=== PATIENT | female | born 1970 | race Caucasian/White ===

== ENCOUNTER 2017-09-12 10:07 | Emergency (ER) | payer OTHER ==
[~2017-09-12] VITALS: Ht 160 cm; Wt 65.8 kg
[2017-09-12] MEDS ORDERED: KETOROLAC TROMETHAMINE 15 MG INJ IM ONE (10:45)
[2017-09-12] MEDS ORDERED: ONDANSETRON 4 MG/2 ML VIAL IM ONE (10:45)
[2017-09-12] MEDS ORDERED: ONDANSETRON 4 MG/2 ML VIAL ONE (11:07)
[2017-09-12] MEDS ORDERED: KETOROLAC TROMETHAMINE 15 MG INJ ONE (11:07)
[2017-09-12 11:20] LABS: BASOPHILS % (AUTO) 0.7 % (0.0-2.0); EOSINOPHILS # (AUTO) 0.1 K/uL (0.0-0.7); EOSINOPHILS % (AUTO) 1.6 % (0.0-7.0); HEMATOCRIT 34.9 % (31.2-41.9); HEMOGLOBIN 11.8 g/dL (10.9-14.3); LYMPHOCYTES # (AUTO) 1.8 K/uL (20.0-40.0); MEAN CORPUSCULAR HEMOGLOBIN 33.4 uug (24.7-32.8); MEAN CORPUSCULAR HGB CONC 34 g/dL (32.3-35.6); MEAN CORPUSCULAR VOLUME 99.2 fL (75.5-95.3); MONOCYTES # (AUTO) 0.4 K/uL (2.0-10.0); MONOCYTES % (AUTO) 6.7 % (0.0-11.0); NEUTROPHILS # (AUTO) 3.5 K/uL (1.8-8.9); PLATELET COUNT (AUTO) 234 K/uL (179-408); RED BLOOD CELL COUNT(AUTO) 3.52 MIL/uL (3.63-4.92); WHITE BLOOD COUNT (AUTO) 5.9 K/uL (3.8-11.8)
[2017-09-12 11:24] LABS: *BILIRUBIN,URIN NEGATIVE (NEGATIVE); *BLOOD, URINE NEGATIVE (NEGATIVE); *CLARITY,URINE CLEAR (CLEAR); *COLOR,URINE YELLOW (YELLOW); *KETONES,URINE NEGATIVE (NEGATIVE); *PROTEIN,URINE NEGATIVE (NEGATIVE); *UROBILINOGEN,URINE 0.2 E.U./dl (NORMAL); LEUKOCYTE ESTERASE ,URINE NEGATIVE (NEGATIVE); NITRITE, URINE NEGATIVE (NEGATIVE); UGLUCOSE NEGATIVE (NEGATIVE)
[2017-09-12 11:28] LABS: *URINE HCG, QUAL NEGATIVE (NEGATIVE)
[2017-09-12 11:31] LABS: CREATININE 0.7 mg/dL (0.6-1.3); POTASSIUM 3.9 mmol/L (3.5-5.1)
[2017-09-12 11:32] LABS: BACTERIA,URINE NONE SEEN /HPF (NONE SEEN); MUCUS,URINE FEW /LPF (0-FEW); RBC,URINE 0-3 /HPF (0-3); SQUAMOUS EPITHELIAL CELL,UR FEW /HPF (NONE SEEN); WBC,URINE 0-3 /HPF (0-3)
--- NOTE | 2017-09-12 11:47 | NUR ---
Patient discharged to home in stable conditon. Written and verbal after care instructions given. Patient verbalizes understanding of instructions.pt walks in steady gait. pt accompanied by , abhayn down to tolerble rashi.
== END 2017-09-12 11:50 | disposition home or self-care (01) ==
LOC: ER 10:07
DX: M54.5 Low back pain (principal); R11.0 Nausea; F17.200 Nicotine dependence, unspecified, uncomplicated; G43.909 Migraine, unspecified, not intractable, without status migrainosus
CPT/HCPCS: 36415; 84703; 85025; A4663; J1885; J2405

== ENCOUNTER 2017-10-18 08:12 | Emergency (ER) | payer OTHER ==
[~2017-10-18] VITALS: Ht 160 cm; Wt 65.8 kg
[2017-10-18 08:49] VITALS: BP 107/72
--- NOTE | 2017-10-18 08:49 | NUR ---
Patient discharged to home in stable conditon. Written and verbal after care instructions given. Patient verbalizes understanding of instructions.
== END 2017-10-18 08:50 | disposition home or self-care (01) ==
LOC: ER 08:12
DX: J40 Bronchitis, not specified as acute or chronic (principal); G40.909 Epilepsy, unspecified, not intractable, without status epilepticus; F17.200 Nicotine dependence, unspecified, uncomplicated
CPT/HCPCS: A4663

== ENCOUNTER 2017-11-06 10:49 | Emergency (ER) | payer OTHER ==
[~2017-11-06] VITALS: Ht 160 cm; Wt 65.8 kg
[2017-11-06] MEDS ORDERED: METOCLOPRAMIDE HCL 10 MG/2 ML VIAL ONE (11:51)
[2017-11-06] MEDS ORDERED: METOCLOPRAMIDE HCL 10 MG/2 ML VIAL IM ONE (12:00)
[2017-11-06] MEDS ORDERED: MORPHINE SULFATE 4 MG/1 ML DISP.SYRIN ONE (13:08)
[2017-11-06] MEDS ORDERED: MORPHINE SULFATE 4 MG/1 ML DISP.SYRIN IM ONE (13:15)
--- NOTE | 2017-11-06 13:15 | NUR ---
PT WAS D/C TO HOME. D/C INSTRUCTIONS GIVEN TO THE PT.
[2017-11-06 13:16] VITALS: BP 136/78
== END 2017-11-06 13:17 | disposition home or self-care (01) ==
LOC: ER 10:49
DX: J45.909 Unspecified asthma, uncomplicated (principal); F17.210 Nicotine dependence, cigarettes, uncomplicated
CPT/HCPCS: 71045; 96372 ×2; 99284; A4663; J2270; J2765

== ENCOUNTER 2017-12-13 18:36 | Emergency (ER) | payer OTHER ==
[~2017-12-13] VITALS: Ht 157.5 cm; Wt 69.9 kg
[2017-12-13] MEDS ORDERED: ASPI1TAB2 PO (19:17)
[2017-12-13] MEDS ORDERED: ONDANSETRON 4 MG/2 ML VIAL IV ONE (20:15)
[2017-12-13] MEDS ORDERED: IV NORMAL SALINE 1000 ML BAG IV ONE (20:15)
[2017-12-13] MEDS ORDERED: KETOROLAC TROMETHAMINE 15 MG INJ IV ONE (20:15)
[2017-12-13 20:30] LABS: BASOPHILS % (AUTO) 1.2 % (0.0-2.0); EOSINOPHILS # (AUTO) 0.1 K/uL (0.0-0.7); EOSINOPHILS % (AUTO) 1.9 % (0.0-7.0); HEMATOCRIT 35.9 % (31.2-41.9); HEMOGLOBIN 12.1 g/dL (10.9-14.3); LYMPHOCYTES # (AUTO) 2.4 K/uL (20.0-40.0); LYMPHOCYTES % (AUTO) 59.3 % (20.5-51.5); MEAN CORPUSCULAR HEMOGLOBIN 33.1 uug (24.7-32.8); MEAN CORPUSCULAR HGB CONC 34 g/dL (32.3-35.6); MEAN CORPUSCULAR VOLUME 98.2 fL (75.5-95.3); MONOCYTES # (AUTO) 0.3 K/uL (2.0-10.0); MONOCYTES % (AUTO) 7.7 % (0.0-11.0); NEUTROPHILS # (AUTO) 1.2 K/uL (1.8-8.9); NEUTROPHILS % (AUTO) 29.9 % (38.5-71.5); PLATELET COUNT (AUTO) 213 K/uL (179-408); RED BLOOD CELL COUNT(AUTO) 3.65 MIL/uL (3.63-4.92)
[2017-12-13] MEDS ORDERED: KETOROLAC TROMETHAMINE 30 MG INJ ONE (20:36)
[2017-12-13] MEDS ORDERED: ONDANSETRON 4 MG/2 ML VIAL ONE (20:36)
[2017-12-13 20:48] LABS: CREATININE 0.7 mg/dL (0.6-1.3); POTASSIUM 4.3 mmol/L (3.5-5.1)
[2017-12-13 20:56] LABS: BILIRUBIN,DIRECT 0.1 mg/dL (0.0-0.2); BILIRUBIN,TOTAL 0.2 mg/dL (0.2-1.0); TOTAL PROTEIN, SERUM 7.1 g/dL (6.4-8.2)
--- NOTE | 2017-12-13 21:05 | NUR ---
PT IN BED. PT'S SPOUSE AT BEDSIDE. IV FLUIDS RUNNING. NO SIGNS OF DISTRESS WITNESSED BY NURSE OR EXPRESSED BY PT AT THIS TIME.
--- NOTE | 2017-12-13 21:23 | NUR ---
PT IN ROUTE TO CT.
[2017-12-13] MEDS ORDERED: METOCLOPRAMIDE HCL 10 MG/2 ML VIAL ONE (21:28)
[2017-12-13] MEDS ORDERED: diphenhydrAMINE 50 MG/1 ML VIAL ONE (21:28)
[2017-12-13] MEDS ORDERED: METOCLOPRAMIDE HCL 10 MG/2 ML VIAL IV ONE (21:30)
[2017-12-13] MEDS ORDERED: diphenhydrAMINE 50 MG/1 ML VIAL IV ONE (21:30)
[2017-12-13 22:16] LABS: *BILIRUBIN,URIN NEGATIVE (NEGATIVE); *BLOOD, URINE NEGATIVE (NEGATIVE); *CLARITY,URINE CLEAR (CLEAR); *COLOR,URINE YELLOW (YELLOW); *KETONES,URINE NEGATIVE (NEGATIVE); *PROTEIN,URINE NEGATIVE (NEGATIVE); *UROBILINOGEN,URINE 0.2 E.U./dl (NORMAL); LEUKOCYTE ESTERASE ,URINE NEGATIVE (NEGATIVE); NITRITE, URINE NEGATIVE (NEGATIVE); UGLUCOSE NEGATIVE (NEGATIVE)
[2017-12-13 22:34] LABS: BACTERIA,URINE NONE SEEN /HPF (NONE SEEN); RBC,URINE 0-3 /HPF (0-3); SQUAMOUS EPITHELIAL CELL,UR MODERATE /HPF (NONE SEEN); WBC,URINE 0-3 /HPF (0-3)
[2017-12-13 22:35] LABS: MUCUS,URINE FEW /LPF (0-FEW)
[2017-12-13 23:01] LABS: BASOPHILS % (MANUAL) 1 % (0-2); EOSINOPHILS % (MANUAL) 1 % (0-8); LYMPHOCYTES % (MANUAL) 60 % (20-40); METAMYELOCYTES % 1 % (0-1); MYELOCYTES % 1 % (0-0); NEUTROPHILS % (MANUAL) 33 % (42-75)
--- NOTE | 2017-12-13 23:15 | NUR ---
Patient discharged to home in stable conditon. Written and verbal after care instructions given. Patient verbalizes understanding of instructions. Patient reported reduced abdominal pain and nausea prior to discharge. PO challenge passed successfully. Patient left in wheelchair pushed by spouse. Peripheral IV was removed from RT AC.
[2017-12-13 23:24] VITALS: BP 91/64
== END 2017-12-13 23:15 | disposition home or self-care (01) ==
LOC: ER 18:40
DX: K52.9 Noninfective gastroenteritis and colitis, unspecified (principal); F17.210 Nicotine dependence, cigarettes, uncomplicated; Z79.82 Long term (current) use of aspirin; Z79.899 Other long term (current) drug therapy
CPT/HCPCS: 36415; 84703; 85025; A4663; J1200; J1885; J2405; J2765; J7030

== ENCOUNTER 2017-12-20 09:52 | Emergency (ER) | payer OTHER ==
[~2017-12-20] VITALS: Ht 157.5 cm; Wt 74.4 kg
[~2017-12-20 09:52] MED LIST: ASPI1TAB2 PO
[2017-12-20] MEDS ORDERED: MORPHINE SULFATE 4 MG/1 ML DISP.SYRIN ONE ×2 (10:09→11:27)
[2017-12-20] MEDS ORDERED: ONDANSETRON 4 MG/2 ML VIAL ONE (10:09)
[2017-12-20] MEDS ORDERED: IV NORMAL SALINE 1000 ML BAG IV ONE (10:15)
[2017-12-20] MEDS ORDERED: MORPHINE SULFATE 2 MG/1 ML DISP.SYRIN IV ONE ×2 (10:15→11:30)
[2017-12-20] MEDS ORDERED: METOCLOPRAMIDE HCL 10 MG/2 ML VIAL ONE (10:18)
[2017-12-20 10:23] LABS: BASOPHILS % (AUTO) 0.9 % (0.0-2.0); EOSINOPHILS # (AUTO) 0.1 K/uL (0.0-0.7); EOSINOPHILS % (AUTO) 2.5 % (0.0-7.0); HEMOGLOBIN 12.2 g/dL (10.9-14.3); LYMPHOCYTES # (AUTO) 1.9 K/uL (20.0-40.0); LYMPHOCYTES % (AUTO) 44.1 % (20.5-51.5); MEAN CORPUSCULAR HEMOGLOBIN 33.1 uug (24.7-32.8); MEAN CORPUSCULAR HGB CONC 34 g/dL (32.3-35.6); MONOCYTES # (AUTO) 0.3 K/uL (2.0-10.0); MONOCYTES % (AUTO) 6.3 % (0.0-11.0); NEUTROPHILS % (AUTO) 46.2 % (38.5-71.5); PLATELET COUNT (AUTO) 223 K/uL (179-408); RED BLOOD CELL COUNT(AUTO) 3.67 MIL/uL (3.63-4.92); WHITE BLOOD COUNT (AUTO) 4.4 K/uL (3.8-11.8)
[2017-12-20] MEDS: ONDANSETRON 4 MG/2 ML VIAL IV ONE ×2 (10:25→10:41)
[2017-12-20 10:26] LABS: CREATININE 0.9 mg/dL (0.6-1.3); POTASSIUM 4.2 mmol/L (3.5-5.1)
[2017-12-20] MEDS ORDERED: METOCLOPRAMIDE HCL 10 MG/2 ML VIAL IV ONE (10:30)
[2017-12-20 10:32] LABS: BILIRUBIN,DIRECT 0.1 mg/dL (0.0-0.2); BILIRUBIN,TOTAL 0.2 mg/dL (0.2-1.0); TOTAL PROTEIN, SERUM 7.3 g/dL (6.4-8.2)
[2017-12-20] MEDS ORDERED: PANTOPRAZOLE SODIUM 40 MG VIAL ONE (10:54)
[2017-12-20] MEDS ORDERED: PANTOPRAZOLE SODIUM 40 MG VIAL IV ONE (11:00)
--- NOTE | 2017-12-20 11:54 | NUR ---
Patient discharged to home in stable conditon. Written and verbal after care instructions given. Patient verbalizes understanding of instructions.pt walks in steady gait. called to callie canas moss picker the pt
[2017-12-20 11:55] VITALS: BP 111/41
== END 2017-12-20 12:00 | disposition home or self-care (01) ==
LOC: ER 09:52
DX: G43.909 Migraine, unspecified, not intractable, without status migrainosus (principal); R10.13 Epigastric pain; F17.210 Nicotine dependence, cigarettes, uncomplicated; Z79.82 Long term (current) use of aspirin
CPT/HCPCS: 36415; 70450; 83690; 85025; A4663; C9113; J2270; J2405; J2765; J7030

== ENCOUNTER 2017-12-28 09:29 | Emergency (ER) | payer OTHER ==
[~2017-12-28] VITALS: Ht 154.9 cm; Wt 63.5 kg
--- NOTE | 2017-12-28 09:53 | NUR ---
PT WALKED INTO ER WITH WHO IS VERY INVOLVED IN PT CARE, CO HEADACHE AND N/V. PER PT THERE IS NOTHING LEFT IN THE STOMACH AND PT HAS A FORCEFUL BUT DRY N/V. PT HAS FOLLOW UP APPT WITH NEUROLOGIST AND SHE IS HERE FOR PAIN, NAUSEA AND DEHYDRATION MANAGEMENT.
[2017-12-28] MEDS ORDERED: HYDROMORPHONE 2 MG/1 ML DISP.SYRIN ONE ×3 (10:10→12:28)
[2017-12-28] MEDS ORDERED: ONDANSETRON 4 MG/2 ML VIAL ONE ×3 (10:10→12:28)
[2017-12-28] MEDS ORDERED: IV NORMAL SALINE 1000 ML BAG IV ONE ×2 (10:15→10:45)
[2017-12-28] MEDS ORDERED: SILVER SULFADIAZINE 1% CREAM 25 GM TUBE TP ONE ×2 (10:15)
[2017-12-28] MEDS ORDERED: ONDANSETRON IV *ER 4 MG/2 ML VIAL IV ONE ×2 (10:15→12:30)
[2017-12-28] MEDS ORDERED: HYDROMORPHONE 1 MG/1 ML DISP.SYRIN IV ONE ×3 (10:15→12:30)
[2017-12-28] MEDS ORDERED: ONDANSETRON 4 MG/2 ML VIAL IV ONE (10:45)
[2017-12-28] MEDS ORDERED: METOCLOPRAMIDE HCL 10 MG/2 ML VIAL ONE (11:29)
[2017-12-28] MEDS ORDERED: METOCLOPRAMIDE HCL 10 MG/2 ML VIAL IV ONE (11:30)
--- NOTE | 2017-12-28 11:34 | NUR ---
FORCEFUL VOMITTING WITH NO OUT PUT STILL PRESENT. MD AWARE, MEDICATED
--- NOTE | 2017-12-28 12:42 | NUR ---
Patient discharged to home in stable conditon. Written and verbal after care instructions given. Patient verbalizes understanding of instructions.PT WALKS IN STEADY GAIT.REQUESTED PX FOR FIORECET AND XANAX. PROVIDED. PT NOT DRIVING PT WITH .
[2017-12-28 12:43] VITALS: BP 127/67
--- NOTE | 2017-12-28 13:10 | NUR ---
PT LEFT ER ACCOMPANIED BY ,. PT AND PT WAS TOLD NOT TO TAKE ANY PAIN PILL OR XANAX AT HOME.
== END 2017-12-28 13:14 | disposition home or self-care (01) ==
LOC: ER 09:29
DX: G43.909 Migraine, unspecified, not intractable, without status migrainosus (principal); F17.210 Nicotine dependence, cigarettes, uncomplicated; Z79.82 Long term (current) use of aspirin
CPT/HCPCS: A4663; J1170; J2405; J2765; J7030

== ENCOUNTER 2018-07-27 03:01 | Emergency (ER) | payer OTHER ==
[~2018-07-27] VITALS: Ht 157.5 cm; Wt 59.4 kg
--- NOTE | 2018-07-27 03:36 | NUR ---
Patient discharged to home in stable conditon. Written and verbal after care instructions given. Patient verbalizes understanding of instructions.
[2018-07-27 03:37] VITALS: BP 106/81
== END 2018-07-27 03:37 | disposition home or self-care (01) ==
LOC: ER 03:05
DX: S60.032A Contusion of left middle finger without damage to nail, initial encounter (principal); S67.193A Crushing injury of left middle finger, initial encounter; F17.200 Nicotine dependence, unspecified, uncomplicated; Z79.82 Long term (current) use of aspirin; W23.0XXA Caught, crushed, jammed, or pinched between moving objects, initial encounter; Y93.89 Activity, other specified; Y92.89 Other specified places as the place of occurrence of the external cause; Y99.8 Other external cause status
CPT/HCPCS: 73140; A4663

== ENCOUNTER → 2019-04-15 | Emergency (ER) | payer OTHER ==
[~2019-04-15] VITALS: Ht 157.5 cm; Wt 63.0 kg
[~2019-04-15] MED LIST changes: +KETOROLAC TROMETHAMINE 30 MG INJ IM ONE; +KETOROLAC TROMETHAMINE 30 MG INJ ONE; +ONDANSETRON 4 MG/2 ML VIAL IM ONE; +ONDANSETRON 4 MG/2 ML VIAL ONE; +ONDANSETRON ODT 4 MG TAB.RAPDIS ONE; +ONDANSETRON ODT 4 MG TAB.RAPDIS SL ONE
--- NOTE | 2019-04-15 06:50 | NUR ---
Patient is AOx4, speaking in complete sentences, speech is clear. Able to follow /comprehend directions. Gait is stable. No cardiovascular distress noted. Rate/rhythm regular. No CP. No respiratory distress noted. Respirations even , unlabored, symmetrical chest rise. No adventitious sounds noted. Chief complaint: Pt c/o b/l breast pain after breast augmentation 2months ago. endorses fever of 102 prior to arrival yesterday, also states drainage of yellowish and greenish to the site. states she has seen her surgeon three times since the surgery but no other interventions done since last week's visit. Denies Fever/Chills. No recent travel. No pertinent medical history/NKDA. + ETOH / -recreational drug use/ nonsmoker. LBM- yesterday. Continent of bowel and bladder function. SAFETY Patient in bed, bed in lowest position. Siderails up x 2. Call light within reach. Will continue to monitor accordingly MD at bedside for hx and physical Addendum: 04/15/19 at 0717 by CHANDNI +ETOH/ -recreational drug use/ smoker 3-5 cigs per day. Endorsed to incoming RN day shift Brayden
--- NOTE | 2019-04-15 07:18 | NUR ---
Dr. Bond here to see pt for MSE.
--- NOTE | 2019-04-15 08:00 | NUR ---
Patient discharged to home in stable conditon. Written and verbal after care instructions given. Patient verbalizes understanding of instructions.
== END | disposition home or self-care (01) ==
LOC: ER 06:35
DX: G89.18 Other acute postprocedural pain (principal); N64.4 Mastodynia; G43.909 Migraine, unspecified, not intractable, without status migrainosus; F17.200 Nicotine dependence, unspecified, uncomplicated; Z79.82 Long term (current) use of aspirin; Z79.899 Other long term (current) drug therapy
CPT/HCPCS: 96372 ×2; 99283; J1885; J2405; A4663; Q0162

== ENCOUNTER 2019-04-21 07:45 | Emergency (ER) | payer OTHER ==
[~2019-04-21] VITALS: Ht 157.5 cm; Wt 59.9 kg
[~2019-04-21 07:45] MED LIST changes: -KETOROLAC TROMETHAMINE 30 MG INJ IM ONE; -KETOROLAC TROMETHAMINE 30 MG INJ ONE; -ONDANSETRON 4 MG/2 ML VIAL IM ONE; -ONDANSETRON 4 MG/2 ML VIAL ONE; -ONDANSETRON ODT 4 MG TAB.RAPDIS ONE; -ONDANSETRON ODT 4 MG TAB.RAPDIS SL ONE
--- NOTE | 2019-04-21 08:27 | NUR ---
Patient assessed and discussion about smoking cessation, and patient was seen by Physician.
--- NOTE | 2019-04-21 08:56 | NUR ---
Patient was given prescription per 's order. Discharge instructions explained and patient expressed understanding. Patient is being discharged at this time.
== END 2019-04-21 09:00 | disposition home or self-care (01) ==
LOC: ER 07:45
DX: G89.18 Other acute postprocedural pain (principal); N64.4 Mastodynia; F17.200 Nicotine dependence, unspecified, uncomplicated; Z79.82 Long term (current) use of aspirin
CPT/HCPCS: A4663

== ENCOUNTER 2019-10-20 02:01 | Emergency (ER) | payer OTHER ==
[~2019-10-20] VITALS: Ht 154.9 cm; Wt 62.6 kg
--- NOTE | 2019-10-20 02:12 | NUR ---
Dr. Ramos at bedside for MSE.
[2019-10-20] MEDS ORDERED: METOCLOPRAMIDE HCL 10 MG/2 ML VIAL ONE (02:59)
[2019-10-20] MEDS ORDERED: diphenhydrAMINE 50 MG/1 ML VIAL ONE (02:59)
[2019-10-20] MEDS ORDERED: diphenhydrAMINE 50 MG/1 ML VIAL IM ONE (03:00)
[2019-10-20] MEDS ORDERED: METOCLOPRAMIDE HCL 10 MG/2 ML VIAL IM ONE (03:00)
--- NOTE | 2019-10-20 03:05 | NUR ---
Patient discharged to home in stable conditon. Written and verbal after care instructions given. Patient verbalizes understanding of instructions. Patient ambulating with steady gait
[2019-10-20 03:09] VITALS: BP 127/82
== END 2019-10-20 03:05 | disposition home or self-care (01) ==
LOC: ER 02:03
DX: G43.909 Migraine, unspecified, not intractable, without status migrainosus (principal); F17.200 Nicotine dependence, unspecified, uncomplicated; Z76.0 Encounter for issue of repeat prescription; Z79.82 Long term (current) use of aspirin; Z79.899 Other long term (current) drug therapy
CPT/HCPCS: 96372 ×2; 99284; J1200; J2765; A4663

== ENCOUNTER 2024-04-15 15:05 | Emergency (ER) | payer OTHER ==
[~2024-04-15] VITALS: Ht 154.9 cm; Wt 60.8 kg
[2024-04-15 16:04] LABS: BASOPHILS % (AUTO) 0.5 % (0.0-2.0); DIFFERENTIAL COMMENT 1; EOSINOPHILS # (AUTO) 0.2 K/uL (0.0-0.7); EOSINOPHILS % (AUTO) 2.8 % (0.0-7.0); HEMATOCRIT 36.4 % (31.2-41.9); HEMOGLOBIN 11.6 g/dL (10.9-14.3); LYMPHOCYTES # (AUTO) 2.5 K/uL (0.8-4.8); LYMPHOCYTES % (AUTO) 36.4 % (20.5-51.5); MEAN CORPUSCULAR HEMOGLOBIN 28.5 uug (24.7-32.8); MEAN CORPUSCULAR HGB CONC 32 g/dL (32.3-35.6); MEAN CORPUSCULAR VOLUME 89.1 fL (75.5-95.3); MONOCYTES # (AUTO) 0.4 K/uL (0.1-1.30); MONOCYTES % (AUTO) 6.1 % (0.0-11.0); NEUTROPHILS # (AUTO) 3.8 K/uL (1.8-8.9); NEUTROPHILS % (AUTO) 54.2 % (38.5-71.5); PLATELET COUNT (AUTO) 302 K/uL (179-408); RED BLOOD CELL COUNT(AUTO) 4.08 MIL/uL (3.63-4.92); RED CELL DISTRIBUTION WIDTH 15.2 % (12.3-17.7); WHITE BLOOD COUNT (AUTO) 6.9 K/uL (3.8-11.8)
[2024-04-15 16:11] LABS: CALCIUM 8.7 mg/dL (8.5-10.1); CREATININE 0.6 mg/dL (0.6-1.3); POTASSIUM 3.7 mmol/L (3.5-5.1)
[2024-04-15] MEDS ORDERED: ACET1TAB23 PO ×2 (16:43→16:46)
[2024-04-15 17:41] VITALS: BP 132/72; TEMP 98.2; O2SAT 98
== END 2024-04-15 17:42 | disposition home or self-care (01) ==
LOC: ER 15:07
DX: H02.844 Edema of left upper eyelid (principal); H02.841 Edema of right upper eyelid; R23.3 Spontaneous ecchymoses; L55.9 Sunburn, unspecified; G43.909 Migraine, unspecified, not intractable, without status migrainosus; F17.200 Nicotine dependence, unspecified, uncomplicated; Z79.1 Long term (current) use of non-steroidal anti-inflammatories (NSAID); Z79.82 Long term (current) use of aspirin; Z98.890 Other specified postprocedural states
CPT/HCPCS: 36415; 85025; A4606; A4663